=== PATIENT | female | born 1970 | race Caucasian/White ===

== ENCOUNTER 2016-07-17 06:51 | Day surgery (SDC) | payer BC ==
[2016-07-16 11:29] LABS: PATH.CAST-FLAG NOT PRESENT; SPERM-FLAG NOT PRESENT; SRC-FLAG NOT PRESENT; XTAL-FLAG NOT PRESENT; YLC-FLAG NOT PRESENT
[2016-07-16 11:35] LABS: ASPARTATE AMINO TRANSFERASE 11 U/L (15-37); BLOOD UREA NITROGEN 24 mg/dL (7-18)
[~2016-07-17] VITALS: Ht 172.7 cm; Wt 109.1 kg
[~2016-07-17 06:51] MED LIST: ALPR0.5T6 PO; HYDR25TA6 PO; LEVO50TA5 PO; OMEP-110 PO; VALS80TA3 PO
[2016-07-17] MEDS ORDERED: FENTANYL PF 250 MCG/5ML ONE (08:00)
[2016-07-17] MEDS ORDERED: MIDAZOLAM 1 MG/ML, 2ML ONE (08:00)
[2016-07-17] MEDS ORDERED: PROPOFOL 10 MG/ML, 20ML ONE (08:51)
[2016-07-17] MEDS ORDERED: ROCURONIUM 10 MG/ML ONE (08:51)
[2016-07-17] MEDS ORDERED: CIPROFLOXACIN 400MG/200ML PMX ONE (08:51)
[2016-07-17] MEDS ORDERED: DEXAMETHASONE 4 MG/ML, 1ML ONE (08:51)
[2016-07-17] MEDS ORDERED: MEPERIDINE/PF 25MG/0.5ML IVPush PRN (09:30)
[2016-07-17] MEDS ORDERED: PROMETHAZINE 25 MG/ML, 1ML IV PRN (09:30)
[2016-07-17] MEDS ORDERED: HYDROmorphone 1 MG/ML, 1ML IV PRN (09:30)
[2016-07-17] MEDS ORDERED: hydrALAzine 20 MG/ML, 1ML IV PRN (09:30)
[2016-07-17] MEDS ORDERED: ONDANSETRON 2MG/ML, 2ML IVPush PRN (09:30)
[2016-07-17] MEDS ORDERED: ACETAMINOPHEN 325 MG TABLET PO PRN (09:30)
[2016-07-17] MEDS ORDERED: OXYcodone 5 MG/5 ML ORAL.SOL UDC PO PRN (09:30)
[2016-07-17] MEDS ORDERED: LABETALOL 5MG/ML, 20ML IV PRN (09:30)
[2016-07-17] MEDS ORDERED: FENTANYL PF 100 MCG/2ML IV PRN (09:30)
[2016-07-17] MEDS ORDERED: ONDANSETRON 2MG/ML, 2ML IV PRN (10:30)
[2016-07-17] MEDS ORDERED: OXYcodone/APAP 5/325MG TABLET PO PRN (10:30)
[2016-07-17] MEDS ORDERED: PHENAZOPYRIDINE 200 MG TABLET PO PRN (10:30)
[2016-07-17] MEDS ORDERED: OPIUM/BELLADONNA SUPP.RECT 16.2-60 MG PR PRN (10:30)
[2016-07-17] MEDS ORDERED: KETOROLAC 30 MG/1 ML IV PRN (10:30)
[2016-07-17] MEDS ORDERED: OXYcodone 5 MG/5 ML ORAL.SOL UDC ONE (10:32)
[2016-07-17] MEDS ORDERED: KETOROLAC 30 MG/1 ML ONE (10:40)
[2016-07-17] MEDS ORDERED: MEPERIDINE/PF 25MG/0.5ML ONE (10:48)
[2016-07-17] MEDS ORDERED: OXYB5TAB7 PO (13:29)
[2016-07-17] MEDS ORDERED: CIPR500T87 PO (13:29)
[2016-07-17] MEDS ORDERED: OXYC-223 PO (13:29)
[2016-07-17] MEDS ORDERED: PHEN-418 PO (13:30)
[2016-07-29 14:12] LABS: CA OXALATE DIHYDRATE 25 % (.); CA OXALATE MONOHYDRATE 40 % (.); URINARY CALCULI COLOR Tan (.)
== END 2016-07-17 14:36 | disposition home or self-care (01) ==
LOC: OR 06:51 → 4NOR 07:00 → OR 14:36
PROVIDERS: ATTEND Urology
DX: N20.0 Calculus of kidney (principal); I10 Essential (primary) hypertension; K21.9 Gastro-esophageal reflux disease without esophagitis; E66.9 Obesity, unspecified; Z68.36 Body mass index [BMI] 36.0-36.9, adult; Z82.49 Family history of ischemic heart disease and other diseases of the circulatory system; Z84.1 Family history of disorders of kidney and ureter; Z90.49 Acquired absence of other specified parts of digestive tract; Z90.710 Acquired absence of both cervix and uterus
CPT/HCPCS: 36415; 52356; 74420; 80053; 81001; 82360; 87086; 88300; C1758; C1769; C2617; J0744; J1100; J1885; J2175; J2250; J2704; J3010

== ENCOUNTER → 2016-10-18 | Outpatient (CLI) | payer BC ==
[~2016-10-18] MED LIST changes: +CIPR500T87 PO; +OXYB5TAB7 PO; +OXYC-223 PO; +PHEN-418 PO
== END | disposition home or self-care (01) ==
LOC: CVU 11:48
PROVIDERS: ATTEND Internal Medicine Cardiovascular Disease
DX: I87.2 Venous insufficiency (chronic) (peripheral) (principal); R07.89 Other chest pain; I10 Essential (primary) hypertension
CPT/HCPCS: 93306; 93970

== ENCOUNTER 2016-12-07 12:51 | Inpatient (IN) | payer BC ==
[~2016-12-07] VITALS: Ht 172.7 cm; Wt 116.7 kg
[~2016-12-07 12:51] MED LIST changes: -OXYC-223 PO; +OXYC-306 PO
[2016-12-07] MEDS ORDERED: ERGO2000 PO (13:29)
[2016-12-07] MEDS ORDERED: METO25TA35 PO (13:29)
[2016-12-07] MEDS ORDERED: HYDR12.53 PO (13:29)
[2016-12-07] MEDS ORDERED: SODIUM CHLORIDE FLUSH 10ML SYR IVF ONE (13:30)
[2016-12-07] MEDS ORDERED: ASPIRIN 81 MG TABLET CHEW PO ONE (13:30)
[2016-12-07] MEDS ORDERED: ASPIRIN 81 MG TABLET CHEW ONE (13:45)
[2016-12-07] MEDS ORDERED: SODIUM CHLORIDE 0.9% 1,000 ML IV ONE (14:03)
[2016-12-07 14:04] LABS: IS PT STATUS REG ER OR PRE ER? YES
[2016-12-07] MEDS ORDERED: SODIUM CHLORIDE FLUSH 10ML SYR IVF PRN (14:30)
[2016-12-07] MEDS ORDERED: ACETAMINOPHEN 325 MG TABLET PO PRN (15:00)
[2016-12-07] MEDS ORDERED: BISACODYL 10 MG SUPP PR PRN (15:00)
[2016-12-07] MEDS ORDERED: POLYETHYLENE GLYCOL 17 GM PACKET PO PRN (15:00)
[2016-12-07] MEDS ORDERED: morphine SULFATE 10 MG/ML, 1ML IVPush PRN (15:00)
[2016-12-07] MEDS ORDERED: ONDANSETRON 2MG/ML, 2ML IVPush PRN (15:00)
[2016-12-07] MEDS ORDERED: ONDANSETRON ODT 4 MG PO PRN (15:00)
[2016-12-07] MEDS ORDERED: TEMAZEPAM 15 MG CAPSULE PO PRN (15:00)
[2016-12-07] MEDS ORDERED: hydrALAzine 20 MG/ML, 1ML IVPush PRN (15:00)
[2016-12-07] MEDS ORDERED: HYDROcodone/APAP 5/325 TABLET PO PRN (15:00)
[2016-12-07] MEDS ORDERED: PROPOFOL 10 MG/ML, 20ML ONE (15:36)
[2016-12-07] MEDS ORDERED: PROPOFOL 10 MG/ML, 20ML IVP ONE (16:00)
[2016-12-07 16:37] LABS: IS PT STATUS REG ER OR PRE ER? NO
[2016-12-07 17:06] VITALS: BP 105/75
[2016-12-07] MEDS: ENOXAPARIN 120MG/0.8ML SQ SCH (17:09)
[2016-12-07] MEDS: METOPROLOL TARTRATE 50 MG TABLET PO SCH (17:10)
[2016-12-07 17:13] VITALS: BP 105/75
[2016-12-07 19:41] VITALS: BP 99/66
[2016-12-07 21:31] LABS: IS PT STATUS REG ER OR PRE ER? NO
[2016-12-08 02:33] VITALS: BP 108/73
[2016-12-08 05:28] VITALS: BP 115/76
[2016-12-08] MEDS: ENOXAPARIN 120MG/0.8ML SQ SCH (05:35)
[2016-12-08] MEDS: METOPROLOL TARTRATE 50 MG TABLET PO SCH (05:36)
[2016-12-08 05:48] LABS: HEMATOCRIT 41.4 % (34.6-47.8); HEMOGLOBIN 13.9 g/dL (11.7-16.4); WHITE BLOOD COUNT 6.9 x10^3/uL (3.4-10)
[2016-12-08] MEDS ORDERED: ASPIRIN 325 MG TABLET EC PO SCH (06:00)
[2016-12-08 06:04] LABS: BLOOD UREA NITROGEN 23 mg/dL (7-18)
[2016-12-08] MEDS ORDERED: PANTOPRAZOLE 40 MG IV IVPush SCH (07:30)
[2016-12-08 08:20] VITALS: BP 115/75
[2016-12-08] MEDS ORDERED: REGADENOSON 0.4 MG/5 ML SYRINGE ONE (08:55)
[2016-12-08] MEDS ORDERED: HYDROCHLOROTHIAZIDE 25 MG TABLET PO SCH (09:00)
[2016-12-08] MEDS ORDERED: HYDR25TA6 PO (14:41)
[2016-12-08] MEDS ORDERED: METO50TA82 PO (14:41)
[2016-12-08] MEDS ORDERED: ASPI-621 PO (14:41)
[2016-12-08 15:06] VITALS: BP 102/66
[2016-12-09] MEDS ORDERED: ASPIRIN 81 MG TABLET EC PO SCH (06:00)
== END 2016-12-08 16:10 | disposition home or self-care (01) | DRG 309 ==
LOC: ED 13:21 → EDIP 14:03 → 5SO 15:26
PROVIDERS: ADMIT Internal Medicine; ATTEND Internal Medicine
DX: I48.0 Paroxysmal atrial fibrillation (principal); D68.69 Other thrombophilia; E03.9 Hypothyroidism, unspecified; E66.9 Obesity, unspecified; Z68.39 Body mass index [BMI] 39.0-39.9, adult; F41.9 Anxiety disorder, unspecified; I10 Essential (primary) hypertension; I34.1 Nonrheumatic mitral (valve) prolapse; K21.9 Gastro-esophageal reflux disease without esophagitis; N20.0 Calculus of kidney; Z79.82 Long term (current) use of aspirin; Z82.49 Family history of ischemic heart disease and other diseases of the circulatory system; Z87.891 Personal history of nicotine dependence; Z87.442 Personal history of urinary calculi; Z90.49 Acquired absence of other specified parts of digestive tract; Z90.710 Acquired absence of both cervix and uterus
CPT/HCPCS: 36415; 78452; 80048; 83036; 83735; 84100; 84439; 84443; 84481; 84484; 85025; 93005; 93017; 93306; 99152; 99291; J1650; J2704; J2785; A9502; C9113; C9898

== ENCOUNTER 2018-04-11 08:25 | Observation (INO) | payer BC ==
[~2018-04-11] VITALS: Ht 172.7 cm; Wt 116.8 kg
[~2018-04-11 08:25] MED LIST changes: +ASPI81TA45 PO; +ERGO2000 PO; +HYDR12.517 PO; +METO25TA35 PO; +METO50TA82 PO
[2018-04-11] MEDS ORDERED: NITROGLYCERIN OINT 2%, 1GM TP ONE ×2 (09:00→09:10)
[2018-04-11 09:17] LABS: BASOPHILS # (AUTO) 0.05 x10^3/uL (0-0.1); BASOPHILS % (AUTO) 1 % (0-1); EOSINOPHILS # (AUTO) 0.19 x10^3/uL (0-0.4); EOSINOPHILS % (AUTO) 3 % (1-7); LYMPHOCYTES # (AUTO) 1.88 x10^3/uL (1-3.4); LYMPHOCYTES % (AUTO) 29 % (22-44); MD NO; MEAN CORPUSCULAR HEMOGLOBIN 31.4 pg (27.0-34.8); MEAN CORPUSCULAR HGB CONC 33.4 g/dL (32.4-35.8); MEAN CORPUSCULAR VOLUME 93.7 fL (80-100); MEAN PLATELET VOLUME 9.2 fL (7.4-10.4); MONOCYTES # (AUTO) 0.69 x10^3/uL (0.2-0.8); MONOCYTES % (AUTO) 10 % (2-9); NEUTROPHILS % (AUTO) 58 % (42-75); PLATELET COUNT 259 x10^3/uL (130-400); RED CELL DISTRIBUTION WIDTH 13.6 % (9.6-15.2)
[2018-04-11 09:27] LABS: INTERNATIONAL NORMALIZED RATIO 1.01 (0.93-1.1); PROTHROMBIN TIME 10.7 Seconds (9.6-11.5)
[2018-04-11 09:29] LABS: ALBUMIN 3.4 g/dL (3.4-5.0); ANION GAP 4 mmol/L (5-15); CALCIUM 10.2 mg/dL (8.5-10.1); CHLORIDE 105 mmol/L (98-107); CREATININE 0.93 mg/dL (0.55-1.02)
[2018-04-11] MEDS ORDERED: SERT25TA3 PO (09:29)
[2018-04-11 09:34] LABS: T4 (THYROXINE) 9.5 mcg/dL (4.8-13.9); TROPONIN I < 0.015 ng/mL (0.000-0.045)
--- NOTE | 2018-04-11 10:29 | NUR ---
PT RESTING IN GURNEY, C/O HEADACHE AFTER NITRO. RV'WD PLAN FOR ADMISSION WITH PT. PT'S THEATRE DIRECTOR AT .
[2018-04-11] MEDS ORDERED: IBUPROFEN 200 MG TABLET ONE (10:59)
[2018-04-11] MEDS ORDERED: IBUPROFEN 200 MG TABLET PO ONE (11:00)
--- NOTE | 2018-04-11 11:03 | NUR ---
PT MED NOTED FOR VANCE PAIN. [facility] EXTERNAL AUDITOR AT BEDSIDE.
--- NOTE | 2018-04-11 11:05 | NUR ---
PT MEDICATED FOR HEADACHE. HOSPITALIST AT BS.
--- NOTE | 2018-04-11 11:12 | NUR ---
PT EATING LUNCH WITH HER HR OPERATIONS ADVISOR.
[2018-04-11] MEDS ORDERED: ONDANSETRON ODT 4 MG PO PRN (12:00)
[2018-04-11] MEDS ORDERED: DOCUSATE 100 MG CAPSULE PO PRN (12:00)
[2018-04-11] MEDS ORDERED: ACETAMINOPHEN 325 MG TABLET PO PRN (12:00)
[2018-04-11] MEDS ORDERED: LABETALOL 5MG/ML, 20ML IVPush PRN (12:00)
[2018-04-11] MEDS ORDERED: ASPIRIN 325 MG TABLET PO ONE (12:00)
[2018-04-11] MEDS ORDERED: POLYETHYLENE GLYCOL 17 GM PACKET PO PRN (12:00)
[2018-04-11] MEDS ORDERED: NITROGLYCERIN 0.4 MG BOTTLE (25 TABS) SL PRN (12:00)
[2018-04-11] MEDS ORDERED: morphine SULFATE 10 MG/ML, 1ML IVPush PRN (12:00)
[2018-04-11] MEDS ORDERED: BISACODYL 10 MG SUPP PR PRN (12:00)
[2018-04-11] MEDS ORDERED: hydrALAzine 20 MG/ML, 1ML IVPush PRN (12:00)
[2018-04-11] MEDS ORDERED: ONDANSETRON 2MG/ML, 2ML IVPush PRN (12:00)
[2018-04-11] MEDS ORDERED: BUTALB/APAP/CAFFEINE 50MG/325MG/40MG PO PRN (12:00)
[2018-04-11 12:03] VITALS: BP 118/75
[2018-04-11] MEDS: ENOXAPARIN 40 MG/0.4 ML SQ SCH (12:24)
[2018-04-11 12:55] LABS: TROPONIN I < 0.015 ng/mL (0.000-0.045)
[2018-04-11] MEDS ORDERED: MAGNESIUM SULFATE PMX 2GM/50ML 50 ML IV ONE (14:30)
[2018-04-11 15:10] LABS: TROPONIN I < 0.015 ng/mL (0.000-0.045)
[2018-04-11] MEDS: METOPROLOL TARTRATE 50 MG TABLET PO SCH (18:52)
[2018-04-11 21:30] VITALS: BP 132/85
[2018-04-12 01:15] VITALS: BP 107/71
[2018-04-12] MEDS: METOPROLOL TARTRATE 50 MG TABLET PO SCH (05:23)
[2018-04-12 05:37] LABS: BASOPHILS # (AUTO) 0.03 x10^3/uL (0-0.1); BASOPHILS % (AUTO) 1 % (0-1); EOSINOPHILS % (AUTO) 5 % (1-7); LYMPHOCYTES # (AUTO) 2.29 x10^3/uL (1-3.4); LYMPHOCYTES % (AUTO) 35 % (22-44); MD NO; MEAN CORPUSCULAR HEMOGLOBIN 32.4 pg (27.0-34.8); MEAN CORPUSCULAR HGB CONC 34.3 g/dL (32.4-35.8); MEAN CORPUSCULAR VOLUME 94.2 fL (80-100); MEAN PLATELET VOLUME 9.1 fL (7.4-10.4); MONOCYTES # (AUTO) 0.86 x10^3/uL (0.2-0.8); MONOCYTES % (AUTO) 13 % (2-9); NEUTROPHILS # (AUTO) 3.01 x10^3/uL (1.8-6.8); NEUTROPHILS % (AUTO) 46 % (42-75); PLATELET COUNT 231 x10^3/uL (130-400); RED BLOOD COUNT 4.77 x10^6/uL (3.82-5.3); RED CELL DISTRIBUTION WIDTH 13.9 % (9.6-15.2)
[2018-04-12 05:45] LABS: CHLORIDE 109 mmol/L (98-107)
[2018-04-12 05:48] LABS: ANION GAP 5 mmol/L (5-15); CALCIUM 9.6 mg/dL (8.5-10.1); CHOL/HDL RATIO 4.6; CHOLESTEROL, TOTAL 190 mg/dL (140-239); CREATININE 1.02 mg/dL (0.55-1.02); HDL CHOL % 22 % (28-40); HDL CHOLESTEROL (DIRECT) 41 mg/dL (40-60); LDL CHOLESTEROL,CALCULATED 111 mg/dL (54-169); LDL/HDL RATIO 2.7 (0.5-3.0); TRIGLYCERIDES 189 mg/dL (50-200); VLDL CHOLESTEROL 38 mg/dL (0-25)
[2018-04-12] MEDS ORDERED: ASPIRIN 81 MG TABLET EC PO SCH (06:00)
[2018-04-12 07:27] VITALS: BP 112/71
[2018-04-12] MEDS ORDERED: SERTRALINE 50MG TABLET PO SCH (09:00)
[2018-04-12] MEDS ORDERED: OMEPRAZOLE 20 MG CAPSULE.DR PO SCH (09:00)
[2018-04-12] MEDS ORDERED: REGADENOSON 0.4 MG/5 ML SYRINGE ONE (09:14)
[2018-04-12 12:11] VITALS: BP 117/78
[2018-04-12] MEDS: ENOXAPARIN 40 MG/0.4 ML SQ SCH (13:00)
[2018-04-12] MEDS ORDERED: ATOR20TA37 PO (15:49)
[2018-04-12] MEDS ORDERED: ATORVASTATIN 20 MG TABLET PO SCH (21:00)
== END 2018-04-12 17:04 | disposition home or self-care (01) ==
LOC: ED 09:01 → EDIP 10:57 → INTOOBSV 10:57 → 5SO 11:42 → DCLOUNGE 04-12 16:51
PROVIDERS: ADMIT Hospitalist; ATTEND Hospitalist
DX: R07.89 Other chest pain (principal); E03.9 Hypothyroidism, unspecified; E86.0 Dehydration; G43.909 Migraine, unspecified, not intractable, without status migrainosus; I10 Essential (primary) hypertension; I34.1 Nonrheumatic mitral (valve) prolapse; I44.0 Atrioventricular block, first degree; I48.91 Unspecified atrial fibrillation; K22.70 Barrett's esophagus without dysplasia; Z82.49 Family history of ischemic heart disease and other diseases of the circulatory system; Z87.442 Personal history of urinary calculi; Z90.710 Acquired absence of both cervix and uterus
CPT/HCPCS: 0399T; 36415; 71045; 78452; 80048; 80061; 82040; 83735; 83880; 84436; 84443; 84484; 85025; 85610; 85730; 93005; 93017; 93306; 96365; 96366; 96372; 99284; A9502; C9898; G0378; J1650; J2785; J3475

== ENCOUNTER → 2020-05-12 | Outpatient (CLI) | payer BC ==
[~2020-05-12] MED LIST changes: -ALPR0.5T6 PO; +ALPR0.5T93 PO; +ATOR20TA37 PO; +OMNIPAQUE 350 MG/ML, 100ML BOTTLE ONE; +OXYB5TAB10 PO; -OXYB5TAB7 PO; -OXYC-306 PO; +OXYC1TAB17 PO; +SERT-331 PO
== END | disposition home or self-care (01) ==
LOC: CFH 13:03
PROVIDERS: ATTEND Internal Medicine Cardiovascular Disease
DX: I48.0 Paroxysmal atrial fibrillation (principal); R00.2 Palpitations; R07.89 Other chest pain
CPT/HCPCS: 71046; 75572; Q9967

== ENCOUNTER → 2020-05-12 | Outpatient (CLI) | payer BC ==
[~2020-05-12] MED LIST changes: -OMNIPAQUE 350 MG/ML, 100ML BOTTLE ONE
== END | disposition home or self-care (01) ==
LOC: STAR 12:27
PROVIDERS: ATTEND Internal Medicine
DX: Z20.822 Contact with and (suspected) exposure to COVID-19 (principal)
CPT/HCPCS: U0003

== ENCOUNTER 2020-05-15 06:16 | Observation (INO) | payer BC ==
[~2020-05-15] VITALS: Ht 172.7 cm; Wt 127.0 kg
[2020-05-15 06:48] VITALS: BP 174/114
[2020-05-15] MEDS ORDERED: RIVA20TA PO (06:55)
[2020-05-15] MEDS ORDERED: LEVO50TA5 PO (06:55)
[2020-05-15] MEDS ORDERED: METO50TA82 PO (06:55)
[2020-05-15] MEDS ORDERED: SODIUM CHLORIDE 0.9% 1,000 ML IV ONE (07:00)
[2020-05-15] MEDS ORDERED: SODIUM CHLORIDE 0.9% 1,000 ML IV SCH ×2 (07:00→17:00)
[2020-05-15 07:14] LABS: BASOPHILS % (AUTO) 1 % (0-1); EOSINOPHILS % (AUTO) 17 % (1-7); LYMPHOCYTES % (AUTO) 25 % (22-44); MEAN CORPUSCULAR HEMOGLOBIN 31.7 pg (27.0-34.8); MEAN CORPUSCULAR HGB CONC 33.7 g/dL (32.4-35.8); MONOCYTES % (AUTO) 10 % (2-9); NEUTROPHILS % (AUTO) 47 % (42-75); PLATELET COUNT 235 x10^3/uL (130-400); RED BLOOD COUNT 4.83 x10^6/uL (3.82-5.3); RED CELL DISTRIBUTION WIDTH 13.5 % (9.6-15.2)
[2020-05-15 07:20] LABS: ANION GAP 4 mmol/L (5-15); CALCIUM 9.3 mg/dL (8.5-10.1); CHLORIDE 113 mmol/L (98-107); CREATININE 0.94 mg/dL (0.55-1.02)
[2020-05-15] MEDS ORDERED: LIDOCAINE 2%, 20ML ONE (07:35)
[2020-05-15] MEDS ORDERED: RIVAROXABAN 20 MG TABLET ONE (07:35)
[2020-05-15 07:37] LABS: MD SCAN
[2020-05-15] MEDS ORDERED: MIDAZOLAM 1 MG/ML, 2ML ONE (07:44)
[2020-05-15] MEDS ORDERED: FENTANYL PF 100 MCG/2ML ONE (07:44)
[2020-05-15] MEDS ORDERED: SUGAMMADEX 200 MG/2 ML IVPush ONE (08:05)
[2020-05-15] MEDS ORDERED: PHENYLEPHRINE 10 MG/ML ONE (08:26)
[2020-05-15] MEDS ORDERED: ROCURONIUM 10MG/ML,5ML ONE ×2 (08:27→09:35)
[2020-05-15] MEDS ORDERED: DEXAMETHASONE 4 MG/ML, 1ML ONE (08:27)
[2020-05-15] MEDS ORDERED: PROPOFOL 10 MG/ML, 20ML ONE (08:27)
[2020-05-15] MEDS ORDERED: SUCCINYLCHOLINE 20 MG/ML, 10ML ONE (08:27)
[2020-05-15] MEDS ORDERED: ONDANSETRON 2MG/ML, 2ML ONE (08:27)
[2020-05-15] MEDS ORDERED: EPHEDRINE 50 MG/ML, 1ML IVPush PRN (12:00)
[2020-05-15] MEDS ORDERED: FENTANYL PF 100 MCG/2ML IV PRN (12:00)
[2020-05-15] MEDS ORDERED: RIVAROXABAN 20 MG TABLET PO SCH (12:00)
[2020-05-15] MEDS ORDERED: ACETAMINOPHEN 325 MG TABLET PO PRN (12:00)
[2020-05-15] MEDS ORDERED: LABETALOL 5MG/ML, 20ML IV PRN (12:00)
[2020-05-15] MEDS ORDERED: OXYcodone 5 MG/5 ML ORAL.SOL UDC PO PRN (12:00)
[2020-05-15] MEDS ORDERED: ONDANSETRON 2MG/ML, 2ML IVPush PRN (12:00)
[2020-05-15] MEDS ORDERED: hydrALAzine 20 MG/ML, 1ML IV PRN (12:00)
[2020-05-15] MEDS ORDERED: HYDROmorphone 1 MG/ML, 1ML INJ IVPush PRN (12:00)
[2020-05-15] MEDS ORDERED: PROMETHAZINE 25 MG/ML, 1ML IVPush PRN (12:00)
[2020-05-15] MEDS: RIVAROXABAN 20 MG TABLET PO SCH (12:30)
[2020-05-15] MEDS ORDERED: ACETAMINOPHEN 650 MG/20.3 ML UDC ONE (12:33)
[2020-05-15] MEDS ORDERED: OXYcodone 5 MG/5 ML ORAL.SOL UDC ONE (12:33)
[2020-05-15 14:06] VITALS: BP 129/79
[2020-05-15] MEDS ORDERED: SODIUM CHLORIDE 0.9% 500 ML IV SCH (17:00)
[2020-05-15] MEDS ORDERED: SODIUM CHLORIDE 0.9%, 500ML IVBOLUS ONE (17:00)
[2020-05-15 19:32] VITALS: BP 116/75
[2020-05-15] MEDS ORDERED: ACETAMINOPHEN 500 MG TABLET PO PRN (22:00)
[2020-05-15] MEDS: METOPROLOL TARTRATE 25 MG TAB PO SCH (22:05)
[2020-05-16 00:36] VITALS: BP 113/5
[2020-05-16] MEDS ORDERED: ASPIRIN 81 MG TABLET EC PO SCH (06:00)
[2020-05-16] MEDS ORDERED: LEVOTHYROXINE 50 MCG TABLET PO SCH (06:00)
[2020-05-16 06:31] VITALS: BP 120/80
[2020-05-16] MEDS ORDERED: OMEPRAZOLE 20 MG CAPSULE.DR PO SCH (07:30)
[2020-05-16] MEDS ORDERED: COLC0.6C3 PO (08:58)
[2020-05-16] MEDS ORDERED: FLEC100T PO (08:58)
[2020-05-16] MEDS ORDERED: ACET-1600 PO (08:58)
[2020-05-16] MEDS ORDERED: FLECAINIDE 100MG TABLET PO SCH (09:00)
[2020-05-16] MEDS ORDERED: COLCHICINE 0.6 MG CAPSULE PO SCH (09:00)
[2020-05-16] MEDS ORDERED: HYDROCHLOROTHIAZIDE 25 MG TABLET PO SCH (09:00)
[2020-05-16] MEDS: METOPROLOL TARTRATE 25 MG TAB PO SCH (10:05)
[2020-05-16] MEDS: RIVAROXABAN 20 MG TABLET PO SCH (10:05)
== END 2020-05-16 11:42 | disposition home or self-care (01) ==
LOC: CACL 06:16 → 5SO 13:15 → CACL 21:54 → 5SO 21:55 → DCLOUNGE 05-16 11:33
PROVIDERS: ADMIT Internal Medicine Cardiovascular Disease; ATTEND Internal Medicine Cardiovascular Disease
DX: I48.0 Paroxysmal atrial fibrillation (principal); I48.4 Atypical atrial flutter; I10 Essential (primary) hypertension; E03.9 Hypothyroidism, unspecified; Z79.82 Long term (current) use of aspirin; Z79.899 Other long term (current) drug therapy
CPT/HCPCS: 36415; 80048; 85025; 85347; 93005; 93306; 93312; 93321; 93325; 93613; 93655; 93656; 93657; 93662; 96360; C1730; C1732; C1759; C1766; C1893; C1894; G0378; J0330; J1100; J2250; J2370; J2405; J2704; J3010; J3490; J7030; J7040